=== PATIENT | male | born 1940 | race Caucasian/White ===

== ENCOUNTER 2018-08-03 08:06 | Emergency (ER) | payer MEDICARE, OTHER ==
--- NOTE | 2018-08-03 10:30 | RADIOLOGY REPORT (SQ) ---
EXAM DESCRIPTION: ELBOW LEFT OVER 2 VIEWS COMPLETED DATE/TIME: 08/03/2018 9:43 am REASON FOR STUDY: fall 2 weeks ago continued with pain COMPARISON: None. NUMBER OF VIEWS: Four views. TECHNIQUE: AP, lateral, and both oblique radiographic images acquired of the left elbow. LIMITATIONS: None. FINDINGS: MINERALIZATION: Normal. BONES: No acute fracture or dislocation. No worrisome bone lesions. JOINT: No effusion. SOFT TISSUES: No soft tissue swelling. No foreign body. OTHER: No other significant finding. IMPRESSION: NEGATIVE STUDY OF THE LEFT ELBOW. NO RADIOGRAPHIC EVIDENCE OF ACUTE INJURY. TECHNICAL DOCUMENTATION: JOB ID: [id number] [employer]- All Rights Reserved Reading location - IP/workstation name: [email or web address]
--- NOTE | 2018-08-03 10:31 | RADIOLOGY REPORT (SQ) ---
EXAM DESCRIPTION: KNEE RIGHT 3 VIEWS COMPLETED DATE/TIME: 08/03/2018 9:43 am REASON FOR STUDY: fall 2 weeks ago continued with pain COMPARISON: None. NUMBER OF VIEWS: Three views. TECHNIQUE: AP, lateral, and sunrise patella radiographic images acquired of the right knee. LIMITATIONS: None. FINDINGS: MINERALIZATION: Normal. BONES: No acute fracture or dislocation. Benign bony spurring, quadriceps attachment to the patella. JOINT: No effusion. SOFT TISSUES: No soft tissue swelling. No radio-opaque foreign body. OTHER: No other significant finding. IMPRESSION: NEGATIVE STUDY OF THE RIGHT KNEE. NO RADIOGRAPHIC EVIDENCE OF ACUTE INJURY. TECHNICAL DOCUMENTATION: JOB ID: [id number] [employer]- All Rights Reserved Reading location - IP/workstation name: [email or web address]
[2018-08-03] MEDS ORDERED: LIDOCAINE 5% (700 MG) TRANSDERMAL ADH..PATCH TP ONE (11:08)
--- NOTE | 2018-08-03 11:28 | ER Document Report ---
ED General - General Chief Complaint: Fall Injury Stated Complaint: LEFT ARM PAIN Time Seen by Provider: 08/03/18 09:03 Primary Care Provider: ROSARIO SYED MD [Primary Care Provider] - Follow up as needed TRAVEL OUTSIDE OF THE [place] IN LAST 30 DAYS: No - HPI Patient complains to provider of: Left elbow pain right knee pain Notes: Patient coming in for evaluation of left elbow pain right knee pain ongoing for the last 2 weeks after a fall. Patient states landed on his knee and landed directly on his elbow. Patient states continues to have slight knee pain was more concerned about his left elbow that is causing sharp shooting pain going up the back of the triceps region. Patient denies any fevers chills nausea vomiting diarrhea - Related Data Allergies/Adverse Reactions: latex [Latex] Allergy (Severe, Verified 08/03/18 08:07) Hives morphine [Morphine] Allergy (Severe, Verified 08/03/18 08:07) Respiratory distress oxycodone HCl [From Percocet] Allergy (Severe, Verified 08/03/18 08:07) prednisone [Prednisone] Allergy (Severe, Verified 08/03/18 08:07) Unknown reaction Past Medical History - Social History Smoking Status: Former Smoker Family History: Reviewed & Not Pertinent Patient has suicidal ideation: No Patient has homicidal ideation: No - Past Medical History Cardiac Medical History: Reports: Hx Hypercholesterolemia Denies: Hx Coronary Artery Disease, Hx Heart Attack, Hx Hypertension Pulmonary Medical History: Denies: Hx Asthma, Hx Bronchitis, Hx COPD, Hx Pneumonia Neurological Medical History: Denies: Hx Cerebrovascular Accident, Hx Seizures Endocrine Medical History: Reports: Hx Diabetes Mellitus Type 2 Renal/ Medical History: Denies: Hx Peritoneal Dialysis Musculoskeletal Medical History: 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 Psychiatric Medical History: Denies: Hx Depression Past Surgical History: Reports: Hx Abdominal Surgery - hernia, Hx Orthopedic Surgery - Immunizations Hx Diphtheria, Pertussis, Tetanus Vaccination: Yes - 2004 Hx Pneumococcal Vaccination: 06/17/08 Review of Systems - Review of Systems Constitutional: No symptoms reported EENT: No symptoms reported Cardiovascular: No symptoms reported Respiratory: No symptoms reported Gastrointestinal: No symptoms reported Genitourinary: No symptoms reported Male Genitourinary: No symptoms reported Musculoskeletal: Other - Elbow and knee pain Skin: No symptoms reported Hematologic/Lymphatic: No symptoms reported Neurological/Psychological: No symptoms reported -: Yes All other systems reviewed and negative Physical Exam - Vital signs Vitals: Temp Pulse Resp BP Pulse Ox 97.4 F 111 H 18 168/84 H 99 08/03/18 08:10 08/03/18 08:10 08/03/18 08:10 08/03/18 08:10 08/03/18 08:10 Interpretation: Normal - General General appearance: Appears well, Alert - HEENT Head: Normocephalic, Atraumatic Eyes: Normal Pupils: PERRL - Respiratory Respiratory status: No respiratory distress Chest status: Nontender Breath sounds: Normal Chest palpation: Normal - Cardiovascular Rhythm: Regular Heart sounds: Normal auscultation Murmur: No - Abdominal Inspection: Normal Distension: No distension Bowel sounds: Normal Tenderness: Nontender Organomegaly: No organomegaly - Back Back: Normal, Nontender - Extremities General upper extremity: Normal inspection, Nontender, Normal color, Normal ROM, Normal temperature General lower extremity: Normal inspection, Nontender, Normal color, Normal ROM, Normal temperature, Normal weight bearing. No: Jodie's sign - Neurological Neuro grossly intact: Yes Cognition: Normal Orientation: AAOx4 [place] Coma Scale Eye Opening: Spontaneous [place] Coma Scale Verbal: Oriented [place] Coma Scale Motor: Obeys Commands [place] Coma Scale Total: 15 Speech: Normal Motor strength normal: LUE, RUE, LLE, RLE Sensory: Normal - Psychological Associated symptoms: Normal affect, Normal mood - Skin Skin Temperature: Warm Skin Moisture: Dry Skin Color: Normal Course - Re-evaluation Re-evalutation: 08/03/18 16:05 Patient's pain describes shortness shooting cannot reproduce pain pressing in the olecranon. More likely possibly a nerve contusion. Patient was started on Neurontin recommend Tylenol for pain control patient was discharged home - Vital Signs Vital signs: Temp Pulse Resp BP Pulse Ox 97.4 F 111 H 18 168/84 H 99 08/03/18 08:10 08/03/18 08:10 08/03/18 08:10 08/03/18 08:10 08/03/18 08:10 Discharge - Discharge Clinical Impression: Left elbow pain Right knee pain Qualifiers: Chronicity: acute Qualified Code(s): M25.561 - Pain in right knee Instructions: Arthralgia ([facility]) Additional Instructions: At this time your x-rays do not show any signs of fracture. I do believe the etiology of your shooting pain in the arm is due to compression or contusion of the nerve. This can continue on for a few more weeks I would recommend that we start you on Neurontin as well as you take Tylenol for pain control. I would recommend following up with your doctor in 1-2 weeks if pain continues. Prescriptions: Gabapentin [Neurontin 100 mg Capsule] 100 mg PO Q12 #60 capsule Referrals: ROSARIO SYED MD [Primary Care Provider] - Follow up as needed
[2018-08-03 11:38] VITALS: BP 151/101
== END 2018-08-03 11:41 | disposition home or self-care (01) ==
LOC: ER 08:06
DX: M25.522 Pain in left elbow (principal); M25.561 Pain in right knee; M79.602 Pain in left arm; W19.XXXA Unspecified fall, initial encounter; Z87.891 Personal history of nicotine dependence; E11.9 Type 2 diabetes mellitus without complications
CPT/HCPCS: 99283